=== PATIENT | male | born 1970 | race Caucasian/White ===

== ENCOUNTER 2016-12-15 09:47 | Emergency (ER) | payer OTHER ==
[~2016-12-15] VITALS: Ht 177.8 cm; Wt 81.0 kg
[~2016-12-15 09:47] MED LIST: ASPI325T PO; CIAL5TAB PO; DESE1CRE TOP; OMEG12002 PO; REQU0.5T PO; TERB250 PO
[2016-12-15 10:01] VITALS: BP 157/103; PULSE 79; RESP 16; TEMP 98.6; O2SAT 97
[2016-12-15] MEDS ORDERED: CEPHALEXIN MONOHYDRATE 500 MG CAP PO ONE (10:15)
[2016-12-15] MEDS ORDERED: CLOTR1%T TOPICAL (10:26)
[2016-12-15] MEDS ORDERED: CEPH-460 PO (10:27)
--- NOTE | 2016-12-15 10:27 | PD ---
HPI Chief Complaint: Skin Problem Time Seen by Provider: 10:08 Travel History International Travel<30 days: No Contact w/Intl Traveler<30days: No Traveled to known affect area: No History of Present Illness HPI Patient is a 46-year-old male who presents to emergency with complaints of a rash to his right anterior villegas which has been ongoing for the past month. Patient reports that he has history of having ringworms, that he tried applying [id number] topical antifungals with no relief of symptoms. Patient reports no fevers or chills, reports concerns as he has noticed increased redness surrounding the rash. Patient reports that his tetanus is up-to-date, resting evaluation for rash to his right anterior villegas. Reports that he also noticed another rash to his left anterior villegas 2 days ago. 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 PFSH Past Surgical History Eye Surgery: Yes Social History Alcohol Use: Yes (beer occas.) Tobacco Use: Yes (06/15 PPD-2 ppd) Substance Use: No Allergies-Medications (Allergen,Severity, Reaction): Coded Allergies: No Known Allergies (Verified , 12/15/16) Reported Meds & Prescriptions Reported Meds & Active Scripts Active No Active Prescriptions or Reported Medications Review of Systems General / Constitutional: No: Fever Eyes: No: Visual changes HENT: No: Headaches Cardiovascular: No: Chest Pain or Discomfort Respiratory: No: Shortness of Breath Gastrointestinal: No: Abdominal Pain Genitourinary: No: Dysuria Musculoskeletal: No: Pain Skin: Positive Rash, Positive Itching, Positive Dryness Neurologic: No: Weakness Psychiatric: No: Depression Endocrine: No: Polydipsia Hematologic/Lymphatic: No: Easy Bruising Physical Exam Narrative GENERAL: NAD, NONTOXIC SKIN: Focused skin assessment warm/dry. Patient with ring worm to right anterior villegas with surrounding erythema. Patient also with bug bite to left anterior villegas with no erythema/edema/drainage or cellulitis HEAD: Atraumatic. Normocephalic. CARDIOVASCULAR: Regular rate and rhythm. RESPIRATORY: No accessory muscle use. Clear to auscultation. Breath sounds equal bilaterally. GASTROINTESTINAL: Abdomen soft, non-tender, nondistended. Hepatic and splenic margins not palpable. MUSCULOSKELETAL: No obvious deformities. No clubbing. No cyanosis. No edema. PSYCHIATRIC: Appropriate mood and affect; insight and judgment normal. Data Data Last Documented VS Vital Signs Date Time Temp Pulse Resp B/P Pulse Ox O2 Delivery O2 Flow Rate FiO2 12/15/16 10:01 98.6 79 16 157/103 97 Orders Cephalexin (Keflex) (12/15/16 10:15) [facility] Medical Decision Making Medical Screen Exam Complete: Yes Emergency Medical Condition: Yes Interpretation(s) Vital Signs Date Time Temp Pulse Resp B/P Pulse Ox O2 Delivery O2 Flow Rate FiO2 12/15/16 10:01 98.6 79 16 157/103 97 Differential Diagnosis Differential for skin infection includes ringworm, cellulitis, bug bite Narrative Course 46-year-old male who presents to emergency room with complaints of ringworm to his right anterior villegas for the past month. Plan to start patient on Clotrimazole cream, I also recommended Selsun Blue topically as well. It appears that patient now has a surrounding erythema concerning for skin infection - will start patient on Keflex. Patient will follow up with envelope stuffer and will return to ER as needed Patient's tetanus is up to date. Diagnosis Primary Impression: Ringworm Additional Impression: Cellulitis Patient Instructions: General Instructions Additional Instructions: Please take all medications as prescribed Return to ER as needed Return to ER if symptoms worsen or progress Please follow up with a envelope stuffer if symptoms progress Please follow up with your primary care doctor Med/Other Pt SpecificInfo: Prescription(s) given Scripts Cephalexin (Keflex)500 Mg [id number] Mg PO Q6H 10 Days Ref 0 Prov:Lani Lockett DO 12/15/16 Clotrimazole Topical 1% Soln1 Applic TOPICAL BID #30 ML Ref 0 Prov:Lani Lockett DO 12/15/16 Disposition: 01 DISCHARGE HOME Condition: Stable Lani Lockett DO Dec 15, 2016 10:27
== END 2016-12-15 10:33 | disposition home or self-care (01) ==
LOC: PHED 09:47
DX: B35.9 Dermatophytosis, unspecified (principal); L03.116 Cellulitis of left lower limb
CPT/HCPCS: 99283